=== PATIENT | male | born 1980 | race African-American/Black ===

== ENCOUNTER 2016-04-22 09:00 | Emergency (ER) | payer OTHER ==
[~2016-04-22] VITALS: Ht 167.6 cm; Wt 75.9 kg
[~2016-04-22 09:00] MED LIST: ADVAIR; ADVAIR 100-501 EACH IH; ADVAIR 100/501 DISK; ADVAIR 100/501 DISK IH; ADVAIR 250-501 EACH IH; ADVAIR 250/501 DISK IH; ADVAIR 500/501 DISK IH; ADVAIR HFA120 INHALA IH; ALBUTEROL; AMLODIPINE; AMLODIPINE BESYL5 MG; AMLODIPINE BESYL5 MG PO; ATENOLOL; ATENOLOL50 MG; ATENOLOL50 MG PO; BACTRIM,SEPT1 TABLET PO; BENICAR20 MG PO; CELEXA40 MG PO; CEPHALEXIN500 MG; CITALOPRAM HBR20 MG; CLARITIN,ALAVAR10 MG PO; DAILY VALUE1 EACH PO; FLONASE16 G1 BOTH NARES; FOLIC ACID1 MG PO; HYDROCHLOROTH12.5 M1 PO; HYDROCHLOROTHIA25 MG; HYDROCHLOROTHIA25 MG PO; HYDROCHLOROTHIAZIDE; HYDROCODON-ACE1 EAC8; HYDRODIURIL,ORE25 MG PO; IBUPROFEN600 MG; IBUPROFEN600 MG PO; KEFLEX500 MG PO; LATUDA20 MG PO; LIBRIUM25 MG PO; LORATADINE10 M2; LORATADINE10 M2 PO; NAPROSYN500 MG PO; NEXIUM40 MG PO; NORCO 5/3251 TABLET PO; NORVASC10 MG PO; NORVASC5 MG PO; ONDANSETRON HCL4 MG PO; PANTOPRAZOLE SO40 MG; PANTOPRAZOLE SO40 MG PO; PERCOCET 5/31 TABLET PO; PREDNISONE10 MG PO; PREDNISONE20 MG PO; PRILOSEC40 MG PO; PROAIR HFA8.5 GM; PROAIR HFA8.5 GM IH; PROTONIX40 MG PO; PROVENTIL,200 INHALA IH; TENORMIN50 MG PO; THIAMINE HCL100 MG PO; TOPAMAX50 MG PO; TOPIRAMATE50 MG; TRAMADOL HCL50 MG; TRAMADOL HCL50 MG PO; TYLENOL WITH C1 EACH PO; ULTRAM50 MG PO; VALIUM10 MG PO; VALIUM5 MG PO; VENTOLIN HFA18 GM IH; VERTICALM25 MG PO; ZANTAC150 MG PO; ZOFRAN4 MG PO
[2016-04-22 09:30] LABS: HEMATOCRIT 43.4 % (38.0-50.0); MCH 28.2 PG (29.0-34.0); MCHC 33.9 G/DL (30.0-36.0); MCV 83.3 FL (86-99); MEAN PLAT.VOLUME 9.2 uM^3 (9.0-12.4); PLATELET COUNT 341 K/uL (156-360); RBC DIS.WIDTH-CV 14.7 % (11.8-14.6); RBC DIS.WIDTH-SD 44.1 % (39-53); RED BLOOD COUNT 5.21 M/uL (4.00-5.50); WHITE BLOOD COUNT 8.7 K/uL (4.1-10.2)
[2016-04-22 09:40] LABS: CHLORIDE 100 mEq/L (99-109); POTASSIUM 3.9 mEq/L (3.7-5.4); SODIUM 140 mEq/L (136-147)
[2016-04-22 09:43] LABS: GLUCOSE 61 mg/dL (70-99)
[2016-04-22 09:44] LABS: ANION GAP 19 MEQ/L (2-14); TOTAL BILIRUBIN 0.2 mg/dL (0.0-1.0)
[2016-04-22 09:46] LABS: ALKALINE PHOSPHATASE 69 IU/L (3-129); GFR ESTIMATE (CALCULATED) > 59 mL/min/
[2016-04-22 09:47] LABS: UREA NITROGEN (BUN) 17 mg/dL (9-23)
[2016-04-22 09:47] LABS: POINT-OF-CARE METER ID UU14100415
[2016-04-22 09:50] LABS: LIPASE 73 U/L (1.0-51.0)
[2016-04-22 09:52] LABS: TROP-I INTERPRETATION NEGATIVE; TROPONIN-I < 0.01 ng/mL (0.0-0.30)
[2016-04-22] MEDS ORDERED: VALIUM5 MG PO (10:23)
[2016-04-22 10:38] LABS: POINT-OF-CARE METER ID UU14100415
[2016-04-22 11:28] VITALS: BP 100/79
== END 2016-04-22 11:40 | disposition home or self-care (01) ==
LOC: EME → EDBD 09:00 → EME 11:40
PROVIDERS: Emergency Medicine
DX: F10.239 Alcohol dependence with withdrawal, unspecified (principal); R07.9 Chest pain, unspecified; K70.10 Alcoholic hepatitis without ascites; K85.90 Acute pancreatitis without necrosis or infection, unspecified; J45.909 Unspecified asthma, uncomplicated; I10 Essential (primary) hypertension
CPT/HCPCS: 80053; 82948; 83690; 84484; 85027; 90832; 93005; 99281; 99285; J7030

== ENCOUNTER 2016-05-17 12:37 | Emergency (ER) | payer OTHER ==
[~2016-05-17] VITALS: Ht 167.6 cm; Wt 81.8 kg
[2016-05-17 13:37] LABS: EOSINOPHIL (%) 0.1 % (0-5); HEMATOCRIT 39.9 % (38.0-50.0); IMMATURE GRANULOCYTE (%) 0.1 % (0.0-0.7); IMMATURE GRANULOCYTE COUNT 0.1 K/uL; LYMPHOCYTE COUNT 1.6 K/uL (1.0-2.8); MCH 28.6 PG (29.0-34.0); MCHC 34.1 G/DL (30.0-36.0); MCV 83.8 FL (86-99); MEAN PLAT.VOLUME 9.2 uM^3 (9.0-12.4); MONOCYTE (%) 4.1 % (3-12); MONOCYTE COUNT 0.3 K/uL (0-0.8); NEUTROPHIL COUNT 6.2 K/uL (1.8-6.4); PLATELET COUNT 303 K/uL (156-360); RBC DIS.WIDTH-CV 15.5 % (11.8-14.6); RBC DIS.WIDTH-SD 47.5 % (39-53); RED BLOOD COUNT 4.76 M/uL (4.00-5.50); WHITE BLOOD COUNT 8.1 K/uL (4.1-10.2)
[2016-05-17 13:45] LABS: CHLORIDE 104 mEq/L (99-109); POTASSIUM 3.6 mEq/L (3.7-5.4); SODIUM 141 mEq/L (136-147)
[2016-05-17 13:47] LABS: GLUCOSE 60 mg/dL (70-99)
[2016-05-17 13:48] LABS: ANION GAP 22 MEQ/L (2-14)
[2016-05-17 13:50] LABS: SERUM ETHYL ALCOHOL 90 mg/dL
[2016-05-17 13:51] LABS: GFR ESTIMATE (CALCULATED) > 59 mL/min/
[2016-05-17 13:52] LABS: UREA NITROGEN (BUN) 18 mg/dL (9-23)
[2016-05-17] MEDS ORDERED: LIBRIUM25 MG PO (15:45)
[2016-05-17] MEDS ORDERED: THIAMINE HCL100 MG PO (15:45)
[2016-05-17 15:52] LABS: ADD MIUA? YES; BILIRUBIN NEGATIVE; BLOOD NEGATIVE; COLOR YELLOW ((YELLOW)); GLUCOSE (STRIP) NEGATIVE; KETONES 80; LEUKOCYTES NEGATIVE; NITRITE NEGATIVE; PROTEIN (STRIP) 30; SPECIFIC GRAVITY 1.025 (1.000-1.030); UROBILINOGEN 0.2 MG/DL (0.2-1.0)
[2016-05-17 15:54] LABS: BACTERIA NONE SEEN /HPF; EPITHELIAL CELLS NONE SEEN /HPF; MUCUS TRACE /LPF; RED BLOOD CELLS 0-5 /HPF (0-5); WHITE BLOOD CELLS 0-5 /HPF (0-5)
[2016-05-17 16:07] LABS: AMPHETAMINE NEGATIVE (500 ng/mL); BARBITURATES NEGATIVE (200 ng/mL); BENZODIAZEPINES PRESUMPTIVE POSITIVE (150 ng/mL); COCAINE NEGATIVE (150 ng/mL); INTERNAL CONTROLS VALID? YES; METHADONE NEGATIVE (200 ng/mL); METHAMPHETAMINE NEGATIVE (500 ng/mL); OPIATES (MORPHINE) NEGATIVE (100 ng/mL); OXYCODONE NEGATIVE (100 ng/mL); PHENCYCLIDINE NEGATIVE (25 ng/mL); PROPOXYPHENE NEGATIVE (300 ng/mL); THC CANNABINOIDS PRESUMPTIVE POSITIVE (50 ng/mL); TRICYCLIC ANTIDEPRESSANTS NEGATIVE (300 ng/mL)
[2016-05-17 16:09] LABS: ADD MEDTOX COMMENT Y
[2016-05-17 16:39] VITALS: BP 115/58
[2016-05-17 16:51] LABS: BENZODIAZEPINES, URINE SCREEN POSITIVE (200 ng/mL)
== END 2016-05-17 16:41 | disposition home or self-care (01) ==
LOC: EME 12:37
PROVIDERS: Emergency Medicine
DX: F10.239 Alcohol dependence with withdrawal, unspecified (principal); R25.8 Other abnormal involuntary movements; R53.1 Weakness; R11.2 Nausea with vomiting, unspecified; I10 Essential (primary) hypertension; J45.909 Unspecified asthma, uncomplicated; Y90.4 Blood alcohol level of 80-99 mg/100 ml
CPT/HCPCS: 80048; 81003; 84999; 85025; 99281; 99285; G0480; J2060; J2405

== ENCOUNTER 2017-04-16 23:58 | Emergency (ER) | payer OTHER ==
[~2017-04-16] VITALS: Ht 167.6 cm; Wt 73.5 kg
[2017-04-17 00:11] VITALS: BP 138/89
== END 2017-04-17 01:30 | disposition left against medical advice (07) ==
LOC: EME 23:58
DX: F19.939 Other psychoactive substance use, unspecified with withdrawal, unspecified (principal); Z53.21 Procedure and treatment not carried out due to patient leaving prior to being seen by health care provider
CPT/HCPCS: 93005